=== PATIENT | female | born 1995 | race African-American/Black ===

== ENCOUNTER → 2017-06-08 | Outpatient (CLI) | payer OTHER ==
[~2017-06-08] MED LIST: DICL75 PO; DOXY10TA PO; NITR100C4 PO; TRAM50 PO; ZOFR4TAB3 SL
== END ==
LOC: HPND 13:12
PROVIDERS: ATTEND Family Medicine
DX: O26.842 Uterine size-date discrepancy, second trimester (principal); Z36.0 Encounter for antenatal screening for chromosomal anomalies
CPT/HCPCS: 76805

== ENCOUNTER → 2017-07-06 | Outpatient (CLI) | payer OTHER ==
[~2017-07-06] MED LIST changes: -DICL75 PO; -TRAM50 PO
== END ==
LOC: HPND 13:09
PROVIDERS: ATTEND Family Medicine
DX: Z36.2 Encounter for other antenatal screening follow-up (principal)
CPT/HCPCS: 76816

== ENCOUNTER 2017-11-09 06:08 | Inpatient (IN) | payer OTHER ==
[~2017-11-09] VITALS: Ht 160 cm; Wt 103.4 kg
--- NOTE | 2017-11-09 08:10 | PD ---
HPI Chief Complaint Contractions Date Seen: November 09, 2017 Travel History International Travel<30 Days: No Contact w/Intl Traveler<30Days: No Known Affected Area: No History of Present Illness HPI Ms. Copeland is a 22-year-old presenting at 39/0 weeks gestation with a chief complaint of contractions. Patient states that she has been experiencing painful contractions since late yesterday afternoon. Currently she states they are less than 5 minutes apart and very painful in nature. Patient also states that she "lost her mucous plug" and began to have some mild bleeding. She endorses good movement and denies any vaginal discharge, vaginal bleeding, dysuria, or loss of fluid at this time. Otherwise she has no complaints and denies any fevers, chills, shortness of breath, chest pain, NVD, abdominal pain, or calf tenderness. Weeks Gestation: 39 Para: 0 : 1 History Past Medical History Narrative Medical -None reported Obstetric History Obstetric History OBGYN: - -LMP approximately 01/20/17 -Regular cycles previously lasting approximately 4-5 days, monthly -No history of abnormal PAP smears reported -MRSA UTI in first trimester -GBS positive Past Surgical History Narrative Surgical -Appendectomy Family History Narrative Family History -Breast cancer, OA, Scoliosis, no complication history reported Social History Narrative Social History -Tobacco - None reported -Alcohol - None since she found out she was on around 01/17, occasional history otherwise -Illicit - None reported Allergies-Medications (Allergen,Severity, Reaction): Coded Allergies: acetaminophen (Verified Allergy, Severe, 11/09/17) hydrocodone (Verified Allergy, Severe, 11/09/17) Home Meds Active Scripts Doxylamine-Pyridoxine (Diclegis) 10-10 Mg Tab, 1 TAB PO BID, #60 TAB 1 Refill Prov:Td Ochoa MD R2 06/13/17 Ondansetron Odt (Zofran Odt) 4 Mg Tab, 4 MG SL Q6HR Y for Nausea/Vomiting, #30 TAB 1 Refill Prov:Td Ochoa MD R2 06/13/17 Nitrofurantoin Monohydrate Macrocrystals (Nitrofurantoin Monohydrate Macrocrystals) 100 Mg Cap, 100 MG PO Q6HR for Infection, #28 CAP 0 Refills Prov:Td Ochoa MD R2 06/07/17 Review of Systems Except as stated in HPI: all other systems reviewed are Neg Physical Exam Narrative GENERAL: Well-nourished, well-developed patient. SKIN: Warm and dry. HEAD: Normocephalic and atraumatic. EYES: No scleral icterus. No injection or drainage. ENT: No nasal drainage noted. Mucous membranes pink. Airway patent. NECK: Supple, trachea midline. No JVD. CARDIOVASCULAR: Regular rate and rhythm without murmurs, gallops, or rubs. RESPIRATORY: Breath sounds equal bilaterally. No accessory muscle use. ABDOMEN/GI: Abdomen soft, non-tender, bowel sounds present, no rebound, no guarding Gravid to 39 GENITOURINARY: Per nursing staff External Genitalia: intact and normal in appearance Cervix: Posterior Dilatation: 1 cm Effacement: 60% Station: -2 Membranes: Intact Uterine Contractions: None currently on monitoring FHT's: Category: 1 Baseline: 130s Reactive: Positive Variability: Moderate Decels: None EXTREMITIES: No cyanosis or edema. BACK: Nontender without obvious deformity. No CVA tenderness. NEUROLOGICAL: Awake and alert. Motor and sensory grossly within normal limits. Five out of 5 muscle strength in all muscle groups. Normal speech. Data Data Vital Signs Reviewed: Yes Orders Orders Vital Signs (Adult) .ON ADMISSION (11/09/17 08:05) ^ Labor Status (11/09/17 08:05) ^ Non Stress Test (11/09/17 08:05) Group B Strep: Positive MDM Medical Record Reviewed: Yes Plan Ms. Copeland is a 22 y/o F presenting to the OB ED with a chief complaint of contractions. 1. 39 weeks gestation -Continue routine OB care -Encouraged oral hydration and vitamin -Cervical exam: Posterior, 1 cm, 60%, -2 -FHT: Category 1, reassuring -Plan to re-check cervix for possible early labor 2. GBS positive -Pen G per protocol 3. MRSA UTI and first trimester -MRSA screening ordered Update: Patient has progressed to 3/4 cm dilation showing patient is likely in early stages of labor. Due to GBS positive, plan to admit patient for penicillin G prophylaxis. Anticipate vaginal delivery. 1. Early labor -Continue routine OB care -Orders placed 2. GBS positive -Pen G per protocol 3. MRSA UTI and first trimester -MRSA screening ordered SDW: Dr. Myers Diagnosis Diagnosis: Primary Impression: 39 weeks gestation of Additional Impression: Uterine contractions during Patient Instructions: General Instructions, Early Labor Signs (ED), Movement (ED), Having Your Baby: The Labor Process (GEN) Td Ochoa MD R2 November 09, 2017 08:10
[2017-11-09] MEDS ORDERED: LACTATED RINGER'S 1000 ML INJ 1,000 ML IV PRN (08:51)
--- NOTE | 2017-11-09 08:51 | HHI.HP ---
History & Physical H&P HPI Chief Complaint Contractions Date Seen: November 09, 2017 Travel History International Travel<30 Days: No Contact w/Intl Traveler<30Days: No Known Affected Area: No History of Present Illness HPI Ms. Copeland is a 22-year-old presenting at 39/0 weeks gestation with a chief complaint of contractions. Patient states that she has been experiencing painful contractions since late yesterday afternoon. Currently she states they are less than 5 minutes apart and very painful in nature. Patient also states that she "lost her mucous plug" and began to have some mild bleeding. She endorses good movement and denies any vaginal discharge, vaginal bleeding, dysuria, or loss of fluid at this time. Otherwise she has no complaints and denies any fevers, chills, shortness of breath, chest pain, NVD, abdominal pain, or calf tenderness. Weeks Gestation: 39 Para: 0 : 1 History (Limited) History Past Medical History Narrative Medical -None reported Obstetric History Obstetric History OBGYN: - -LMP approximately 01/20/17 -Regular cycles previously lasting approximately 4-5 days, monthly -No history of abnormal PAP smears reported -MRSA UTI in first trimester -GBS positive Past Surgical History Narrative Surgical -Appendectomy Family History Narrative Family History -Breast cancer, OA, Scoliosis, no complication history reported Social History Narrative Social History -Tobacco - None reported -Alcohol - None since she found out she was on around 01/17, occasional history otherwise -Illicit - None reported Allergies-Medications Allergies-Medications (Allergen,Severity, Reaction): Coded Allergies: acetaminophen (Verified Allergy, Severe, 11/09/17) hydrocodone (Verified Allergy, Severe, 11/09/17) Home Meds Active Scripts Doxylamine-Pyridoxine (Diclegis) 10-10 Mg Tab, 1 TAB PO BID, #60 TAB 1 Refill Prov:Td Ochoa MD R2 06/13/17 Ondansetron Odt (Zofran Odt) 4 Mg Tab, 4 MG SL Q6HR Y for Nausea/Vomiting, #30 TAB 1 Refill Prov:Td Ochoa MD R2 06/13/17 Nitrofurantoin Monohydrate Macrocrystals (Nitrofurantoin Monohydrate Macrocrystals) 100 Mg Cap, 100 MG PO Q6HR for Infection, #28 CAP 0 Refills Prov:Td Ochoa MD R2 06/07/17 ROS Review of Systems Except as stated in HPI: all other systems reviewed are Neg Physical Exam Physical Exam Narrative GENERAL: Well-nourished, well-developed patient. SKIN: Warm and dry. HEAD: Normocephalic and atraumatic. EYES: No scleral icterus. No injection or drainage. ENT: No nasal drainage noted. Mucous membranes pink. Airway patent. NECK: Supple, trachea midline. No JVD. CARDIOVASCULAR: Regular rate and rhythm without murmurs, gallops, or rubs. RESPIRATORY: Breath sounds equal bilaterally. No accessory muscle use. ABDOMEN/GI: Abdomen soft, non-tender, bowel sounds present, no rebound, no guarding Gravid to 39 GENITOURINARY: Per nursing staff External Genitalia: intact and normal in appearance Cervix: Posterior Dilatation: 1 cm Effacement: 60% Station: -2 Membranes: Intact Uterine Contractions: None currently on monitoring FHT's: Category: 1 Baseline: 130s Reactive: Positive Variability: Moderate Decels: None EXTREMITIES: No cyanosis or edema. BACK: Nontender without obvious deformity. No CVA tenderness. NEUROLOGICAL: Awake and alert. Motor and sensory grossly within normal limits. Five out of 5 muscle strength in all muscle groups. Normal speech. Data Data Data Vital Signs Reviewed: Yes Orders Orders Vital Signs (Adult) .ON ADMISSION (11/09/17 08:05) ^ Labor Status (11/09/17 08:05) ^ Non Stress Test (11/09/17 08:05) Group B Strep: Positive MDM MDM Medical Record Reviewed: Yes Plan Ms. Copeland is a 22 y/o F presenting to the OB ED with a chief complaint of contractions. 1. 39 weeks gestation -Continue routine OB care -Encouraged oral hydration and vitamin -Cervical exam: Posterior, 1 cm, 60%, -2 -FHT: Category 1, reassuring -Plan to re-check cervix for possible early labor 2. GBS positive -Pen G per protocol 3. MRSA UTI and first trimester -MRSA screening ordered Update: Patient has progressed to 3/4 cm dilation showing patient is likely in early stages of labor. Due to GBS positive, plan to admit patient for penicillin G prophylaxis. Anticipate vaginal delivery. 1. Early labor -Continue routine OB care -Orders placed 2. GBS positive -Pen G per protocol 3. MRSA UTI and first trimester -MRSA screening ordered SDW: Dr. Myers Diagnosis Diagnosis: Primary Impression: 39 weeks gestation of Additional Impression: Uterine contractions during Patient Instructions: General Instructions, Early Labor Signs (ED), Movement (ED), Having Your Baby: The Labor Process (GEN) Td Ochoa MD R2 November 09, 2017 08:51
[2017-11-09] MEDS ORDERED: SODIUM CHLORID 0.9% 500 ML INJ 500 ML IV PRN (09:00)
[2017-11-09] MEDS ORDERED: CITRIC ACID-SODIUM CITRATE LIQ 30 ML UDC PO SCH (09:00)
[2017-11-09] MEDS: LACTATED RINGER'S 1000 ML INJ 1,000 ML IV SCH ×2 (09:00→17:41)
[2017-11-09] MEDS ORDERED: LIDOCAINE HCL 1% 50 ML VIAL I-DERMAL PRN (09:00)
[2017-11-09] MEDS ORDERED: ONDANSETRON HCL 4 MG/2 ML VIAL IV PUSH PRN (09:00)
[2017-11-09] MEDS ORDERED: LIDOCAINE HCL 1% 50 ML VIAL INFIL PRN (09:00)
[2017-11-09] MEDS ORDERED: OXYTOCIN 30 UNITS-500ML PREMIX 500 ML IV ONE (09:00)
[2017-11-09] MEDS ORDERED: MINERAL OIL 10 ML VIAL TOPICAL PRN (09:00)
[2017-11-09] MEDS ORDERED: SODIUM CHLOR 0.9% 1000 ML INJ 1,000 ML IV PRN (09:11)
[2017-11-09 09:20] LABS: AUTOMATED NEUTROPHIL # 9.1 TH/MM3 (1.8-7.7); BASOPHIL % 0.4 % (0.0-2.0); EOSINOPHIL # 0.1 TH/MM3 (0-0.4); EOSINOPHIL % 0.4 % (0.0-4.0); HEMATOCRIT 35.2 % (35.0-46.0); HEMOGLOBIN 11.5 GM/DL (11.6-15.3); LYMPH % 21.4 % (9.0-44.0); LYMPHOCYTE # 2.8 TH/MM3 (1.0-4.8); MEAN CORPUSCULAR HEMOGLOBIN 26.8 PG (27.0-34.0); MEAN CORPUSCULAR HGB CONC 32.6 % (32.0-36.0); MEAN PLATELET VOLUME 8.2 FL (7.0-11.0); MONO % 8.9 % (0.0-8.0); MONOCYTE # 1.2 TH/MM3 (0-0.9); NEUT % 68.9 % (16.0-70.0); PLATELET COUNT 339 TH/MM3 (150-450); RED BLOOD COUNT 4.29 MIL/MM3 (4.00-5.30); WHITE BLOOD COUNT 13.2 TH/MM3 (4.0-11.0)
[2017-11-09 09:22] LABS: BACTERIA, URINE RARE /hpf; BILIRUBIN, URINE NEG (NEG); BLOOD, URINE SMALL (NEG); GLUCOSE,URINE NEG (NEG); KETONE, URINE 10 mg/dL (NEG); MUCUS URINE FEW /lpf (OCC); NITRITE,URINE NEG (NEG); PH, URINE 6.5 (5.0-8.5); SQUAMOUS EPITHELIAL CELL URINE 4 /hpf (0-5); URINE COLOR YELLOW (YELLW/STRAW); URINE LEUKOCYTE ESTERASE TRACE (NEG)
[2017-11-09] MEDS ORDERED: PENICILLIN G POTASSIUM INJ 5,000,000 UNITS in SODIUM CHLORIDE 0.9% INJ 100 ML IV ONE (10:00)
[2017-11-09] MEDS ORDERED: fentaNYL 2MCG-BUPIV 0.125% INJ 150 ML EPIDURAL ONE (10:28)
[2017-11-09] MEDS ORDERED: ePHEDrine/NS 25 MG/5 ML SYRINGE ONE (10:28)
[2017-11-09] MEDS ORDERED: LIDOCAINE 1.5%/EPINEPHrine 1:200,000 PF 5 ML AMP ONE (11:03)
[2017-11-09] MEDS ORDERED: fentaNYL 2MCG-BUPIV 0.125% 100 ML EPIDURAL PRN (12:45)
[2017-11-09] MEDS ORDERED: ePHEDrine/NS 25 MG/5 ML SYRINGE IV PUSH PRN (12:45)
[2017-11-09] MEDS ORDERED: NO SYSTEM NARCOTICS PRN (12:45)
[2017-11-09] MEDS ORDERED: DO NOT ADMINISTER ANTICOAGULANTS PRN (12:45)
[2017-11-09] MEDS: PENICILLIN G POTASSIUM INJ 2,500,000 UNITS in SODIUM CHLORIDE 0.9% INJ 100 ML IV SCH ×3 (13:56→21:30)
[2017-11-09] MEDS ORDERED: DIPHTH/TETANUS/ACEL PERTUSSIS (BOOSTER) 0.5 ML VIAL/PFS IM ONE (16:00)
[2017-11-09] MEDS ORDERED: MEASLES, MUMPS, RUBELLA VACCINE 0.5 ML VIAL SQ ONE (16:00)
--- NOTE | 2017-11-09 16:03 | PD.LABORPN ---
Subjective Subjective pt. in bed comfortable s/p epidural. Objective Objective Pelvic Exam: Cervix: mid Dilatation: 5 Effacement: 90 Station: 0 Presentation: cephalic Membranes: ruptured, arom Uterine Contractions: q 3-5 min FHT's: Category: 1 Reactive: + Variability: mod Weeks Gestation: 39 Pt started active labor?: Yes Medical induction of labor?: No Artificial rupture of membrane: Yes Artificial ROM date: November 09, 2017 Artifical ROM time: 15:30 Assessment/Plan Problem List: (1) 39 weeks gestation of ICD Codes: Z3A.39 - 39 weeks gestation of Status: Acute (2) Uterine contractions during ICD Codes: O62.2 - Other uterine inertia Status: Acute Assessment and Plan pt. s/p arom. fht reassuring. will recheck in 1 hour and if no change will augment w/ pitocin. Mynor Rangel Jr., MD November 09, 2017 16:03
[2017-11-09] MEDS ORDERED: OXYTOCIN 30 UNITS-500ML PREMIX 500 ML IV PRN (16:45)
--- NOTE | 2017-11-09 19:20 | PD.LABORPN ---
Subjective Subjective Patient seen and examined. Patient resting comfortably with very sugars in room. Currently with no complaints. Pain controlled with epidural. Patient endorses movement and consistent contractions augmented with oxytocin. Objective Objective Pelvic Exam: Per nursing staff Dilatation: 6/7 cm Effacement: 70% Station: -2 Membranes: AROM with clear fluid Uterine Contractions: Every 2-4 minutes FHT's: Category: 1 Baseline: 120s Reactive: Positive Variability: Moderate Decels: None Weeks Gestation: 39 Pt started active labor?: Yes Medical induction of labor?: No Artificial rupture of membrane: Yes Artificial ROM date: November 09, 2017 Artifical ROM time: 15:30 Assessment/Plan Problem List: (1) 39 weeks gestation of ICD Codes: Z3A.39 - 39 weeks gestation of Status: Acute (2) Uterine contractions during ICD Codes: O62.2 - Other uterine inertia Status: Acute Assessment and Plan 1. Active labor -Continue routine OB care -Epidural in place without complaints for pain control -AROM with clear fluid, IUPC in place -Oxytocin currently at 5 mU/min -FHT category 1, reassuring -Anticipate vaginal delivery 2. GBS positive -Pen G per protocol; s/p 3 doses 3. MRSA UTI and first trimester -MRSA screening negative Td Ochoa MD R2 November 09, 2017 19:20
[2017-11-09] MEDS ORDERED: LIDOCAINE HCL 1% PF 30 ML VIAL ONE (21:19)
[2017-11-09] MEDS ORDERED: ZOLPIDEM TARTRATE 5 MG TAB PO PRN (23:00)
[2017-11-09] MEDS ORDERED: ONDANSETRON ODT 4 MG TAB PO PRN (23:00)
[2017-11-09] MEDS ORDERED: WITCH HAZEL 50%/GLYCERIN 12.5% 40 PAD JAR TOPICAL PRN (23:00)
[2017-11-09] MEDS ORDERED: ALUMINUM/MAGNESIUM/SIMETH 30 ML CUP PO PRN (23:00)
[2017-11-09] MEDS ORDERED: DOCUSATE SODIUM 50 MG/SENNA 8.6 MG TAB PO PRN (23:00)
[2017-11-09] MEDS ORDERED: OXYTOCIN 30 UNITS-500ML PREMIX 500 ML IV SCH (23:00)
[2017-11-09] MEDS ORDERED: SODIUM CHLORIDE 0.9% FLUSH 10 ML FLUSH IV FLUSH PRN (23:00)
[2017-11-09] MEDS ORDERED: BENZOCAINE 20% TOPICAL SPRAY 60 ML CAN TOPICAL PRN (23:00)
--- NOTE | 2017-11-09 23:03 | PD.OB.DELI ---
Weeks gestation: 39 Pt started active labor?: Yes Medical induction of labor?: No Artificial rupture of membrane: Yes Artificial ROM date: November 09, 2017 Artifical ROM time: 15:30 Anesthesia: Epidural Episiotomy: None Vaginal Delivery: Normal Presentation: Occiput anterior Nuchal Cord: None Delayed cord clamping (45 sec): Yes : Female Delivery date: November 09, 2017 Delivery time: 22:35 One Minute : 8 Five Minute : 8 Weight: 3305g Placenta: Spontaneous delivery Laceration: No lacerations (L introitus skid anant; hemostasis obtained with pressure only) Estimated blood loss: <150cc Additional Information Ms. Copeland is a 22-year-old G1 now P1 after uncomplicated . Delivery performed under epidural anesthesia with oxytocin augmentation. Patient had appropriately been treated for GBS positive status. Baby with Apgars of 8/8 and birthweight of 3305 g. Mother delivered the placenta spontaneously and was without lacerations. Currently mother and baby are resting comfortably in room. Of note, baby was given a short course of CPAP with blow-by oxygen initially, but responded well and is currently with an oxygen saturation in the upper 90s on room air. SDW: Td Light MD R2 November 09, 2017 23:03
[2017-11-10 01:16] VITALS: BP 131/84; PULSE 108; RESP 18; TEMP 98.5
[2017-11-10] MEDS: IBUPROFEN 800 MG TAB PO PRN ×3 (03:04→20:07)
[2017-11-10] MEDS: oxyCODONE/ACETAMINOPHEN 5 MG/325 MG TAB PO PRN ×3 (08:20→15:50)
--- NOTE | 2017-11-10 08:47 | HHI.OB ---
Subjective Post Day: 1 Remarks Pt seen and examined this morning. day # 1 AFVSS overnight. Decreased lochia. Denies dysuria. No breast tenderness. She is feeding the baby via breast. Appetite good. No nausea or vomiting. Patient endorses having a bowel movement and continues to pass bowel gas. Ambulating well. Denies calf pain or shortness of breath. Her only complaint this morning is cramping while breast-feeding. Otherwise, she is doing well this morning and has no other concerns. (Td Ochoa MD R2) Objective Vitals/I&O Vital Signs Date Time Temp Pulse Resp B/P (MAP) Pulse Ox O2 Delivery O2 Flow Rate FiO2 11/10/17 01:16 98.5 108 18 131/84 (100) Objective Remarks GENERAL: Well-nourished, well-developed patient. CARDIOVASCULAR: Regular rate and rhythm without murmurs, gallops, or rubs. RESPIRATORY: Breath sounds equal bilaterally. No accessory muscle use. ABDOMEN/GI: Abdomen soft, non-tender. Fundus: Firm, non-tender at umbilicus. GENITOURINARY: Light to moderate bleeding. EXTREMITIES: No cyanosis or edema, non-tender, without signs of DVT. Medications and IVs Current Medications Medications (Trade) Dose Ordered Sig/Carisa Route Start Time Stop Time Status Last Admin ([facility] [place] [facility]) No systemic narcotics to be given except... UNSCH PRN .XX 11/09/17 12:45 11/10/17 12:44 ([facility] [place] [facility]) DO NOT ADMINISTER ANY ANTICOAGUL... UNSCH PRN .XX 11/09/17 12:45 11/10/17 12:44 Fentanyl/ Bupivacaine HCl 100 ml @ 0 mls/hr TITRATE PRN EPIDURAL 11/09/17 12:45 (ePHEDrine/NS 25 MG/5 ML SYR) 10 mg UNSCH PRN IV PUSH 11/09/17 12:45 11/10/17 12:44 Oxytocin 500 ml @ 2 mls/hr TITRATE PRN IV 11/09/17 16:45 11/09/17 18:10 (NS Flush) 2 ml BID IV FLUSH 11/10/17 09:00 (NS Flush) 2 ml UNSCH PRN IV FLUSH 11/09/17 23:00 (Motrin) 800 mg Q8H PRN PO 11/09/17 23:00 11/10/17 03:04 (Americaine 20% Top Spr) 1 spray Q4H PRN TOPICAL 11/09/17 23:00 11/10/17 03:04 (Tucks Pads) 1 applic QID PRN TOPICAL 11/09/17 23:00 11/10/17 03:04 (Tabatha-Colace) 2 tab Q12H PRN PO 11/09/17 23:00 11/10/17 08:20 (Ambien) 5 mg HS PRN PO 11/09/17 23:00 (Mag-Al Plus Susp Liq) 15 ml Q8H PRN PO 11/09/17 23:00 (Zofran Odt) 4 mg Q6H PRN PO 11/09/17 23:00 (Percocet 5-325 Mg) 1 tab Q4H PRN PO 11/10/17 07:45 (Percocet 5-325 Mg) 2 tab Q4H PRN PO 11/10/17 07:45 11/10/17 08:20 (Td Ochoa MD R2) Assessment/Plan Problem List: (1) 39 weeks gestation of ICD Codes: Z3A.39 - 39 weeks gestation of Status: Resolved (2) Uterine contractions during ICD Codes: O62.2 - Other uterine inertia Status: Resolved (3) (spontaneous vaginal delivery) ICD Codes: O80 - Encounter for full-term uncomplicated delivery Assessment and Plan 37 y/o female who is day # 1 s/p . -Continue routine care. -Percocet and Motrin PRN pain. -Encouraged OOB. Advised pelvic rest for 6 wks. patient will follow-up in 6 weeks with PCP. -Re: ctrl, she would like to discuss her options at a later date. -Anticipate discharge tomorrow with baby. dw Dr. Eran MD Discharge Planning Tomorrow pending clinical course (Td Ochoa MD R2) Attending Attestation Patient seen and examined, discussed with Dr Ochoa. I agree with assessment and management as documented and discussed with me. Discussed control options with patient. After weighing risks and benefits , she has opted for micronor OCPs. (Asia Barillas MD) Td Ochoa MD R2 Nov 10, 2017 08:47 Asia Barillas MD Nov 10, 2017 17:36
[2017-11-10] MEDS ORDERED: IBUP1TAB7 PO (08:48)
[2017-11-10] MEDS ORDERED: PERI PO (08:48)
--- NOTE | 2017-11-10 08:49 | HHI.DCPOC ---
Discharge Care Plan Diagnosis: (1) (spontaneous vaginal delivery) Report Symptoms to Your Doctor -Temperature above 100.5 degrees -Redness, of incision or excessive or foul smelling drainage -Unusual pain or calf pain -Increased vaginal bleeding -Painful or difficulty urinating -Feelings of extreme sadness or anxiety after 2 weeks Goals to Promote Your Health * To prevent worsening of your condition and complications * To maintain your health at the optimal level Directions to Meet Your Goals Take your medications as prescribed Follow your dietary instruction Follow activity as directed Ensure plenty of rest for recovery Drink fluids for hydration Keep your appointments as scheduled Take your immunizations and boosters as scheduled If your symptoms worsen call your PCP, if no PCP go to Urgent Care Center or Emergency Room Smoking is Dangerous to Your Health. Avoid second hand smoke Call the 24-hour crisis hotline for domestic abuse at Td Ochoa MD R2 Nov 10, 2017 08:48
[2017-11-10] MEDS ORDERED: SODIUM CHLORIDE 0.9% FLUSH 10 ML FLUSH IV FLUSH SCH (09:00)
[2017-11-10] MEDS ORDERED: NORE0.354 PO (13:09)
[2017-11-10 21:08] VITALS: BP 122/69; PULSE 88; RESP 18; TEMP 97.9
[2017-11-11] MEDS: oxyCODONE/ACETAMINOPHEN 5 MG/325 MG TAB PO PRN ×2 (03:02→12:33)
[2017-11-11] MEDS: IBUPROFEN 800 MG TAB PO PRN ×2 (03:03→12:34)
--- NOTE | 2017-11-11 07:45 | HHI.OB ---
Subjective Post Day: 2 Remarks Patient seen and examined this morning. AFVSS overnight. day #2. Patient states her pain has been well-controlled. Decreased lochia. Denies dysuria. No breast tenderness. Appetite good. No nausea or vomiting. Ambulating well. Denies fevers or chills, calf pain, shortness of breath, or cough. She otherwise has no other complaints or concerns this morning. (Duy Watson MD R2) Remarks Patient seen and evaluated with resident under direct supervision, agree with assessment and plan. (Rishi Roberts MD) Objective Vitals/I&O Vital Signs Date Time Temp Pulse Resp B/P (MAP) Pulse Ox O2 Delivery O2 Flow Rate FiO2 11/10/17 21:08 97.9 88 18 122/69 (86) Objective Remarks GENERAL: Well-nourished, well-developed patient. CARDIOVASCULAR: Regular rate and rhythm without murmurs, gallops, or rubs. RESPIRATORY: Breath sounds equal bilaterally. No accessory muscle use. ABDOMEN/GI: Abdomen soft, non-tender. Fundus: Firm, non-tender at umbilicus. GENITOURINARY: Light to moderate bleeding. EXTREMITIES: No cyanosis or edema, non-tender, without signs of DVT. Medications and IVs Current Medications Medications (Trade) Dose Ordered Sig/Carisa Route Start Time Stop Time Status Last Admin Fentanyl/ Bupivacaine HCl 100 ml @ 0 mls/hr TITRATE PRN EPIDURAL 11/09/17 12:45 Oxytocin 500 ml @ 2 mls/hr TITRATE PRN IV 11/09/17 16:45 11/09/17 18:10 (NS Flush) 2 ml BID IV FLUSH 11/10/17 09:00 (NS Flush) 2 ml UNSCH PRN IV FLUSH 11/09/17 23:00 (Motrin) 800 mg Q8H PRN PO 11/09/17 23:00 11/11/17 03:03 (Americaine 20% Top Spr) 1 spray Q4H PRN TOPICAL 11/09/17 23:00 11/10/17 03:04 (Tucks Pads) 1 applic QID PRN TOPICAL 11/09/17 23:00 11/10/17 03:04 (Tabatha-Colace) 2 tab Q12H PRN PO 11/09/17 23:00 11/10/17 08:20 (Ambien) 5 mg HS PRN PO 11/09/17 23:00 (Mag-Al Plus Susp Liq) 15 ml Q8H PRN PO 11/09/17 23:00 (Zofran Odt) 4 mg Q6H PRN PO 11/09/17 23:00 (Percocet 5-325 Mg) 1 tab Q4H PRN PO 11/10/17 07:45 11/11/17 03:02 (Percocet 5-325 Mg) 2 tab Q4H PRN PO 11/10/17 07:45 11/10/17 15:50 (Duy Watson MD R2) Assessment/Plan Problem List: (1) 39 weeks gestation of ICD Codes: Z3A.39 - 39 weeks gestation of Status: Resolved (2) (spontaneous vaginal delivery) ICD Codes: O80 - Encounter for full-term uncomplicated delivery Assessment and Plan 37 y/o female who is day #2 s/p . -Continue routine care. -Percocet and Motrin PRN pain. -Encouraged OOB. Advised pelvic rest for 6 wks. patient will follow-up in 6 weeks with PCP. -Re: ctrl, she would like to discuss her options at a later date. -Anticipate discharge today [facility] OB hospitalist Discharge Planning Stable for discharge home today (Duy Watson MD R2) Duy Watson MD R2 Nov 11, 2017 07:45 Rishi Roberts MD Nov 12, 2017 16:40
== END 2017-11-11 18:34 | disposition home or self-care (01) | DRG 775 ==
LOC: HOBED 06:08 → H2EA 08:46 → H1EA 11-10 00:49
PROVIDERS: ADMIT Obstetrics & Gynecology Obstetrics; ATTEND Obstetrics & Gynecology Obstetrics
PROC: 10E0XZZ Delivery of Products of Conception, External Approach (ICD-10-PCS; principal; 2017-11-09)
PROC: 10907ZC Drainage of Amniotic Fluid, Therapeutic from Products of Conception, Via Natural or Artificial Opening (ICD-10-PCS; 2017-11-09)
PROC: 10H07YZ Insertion of Other Device into Products of Conception, Via Natural or Artificial Opening (ICD-10-PCS; 2017-11-09)
DX: O99.824 Streptococcus B carrier state complicating childbirth (principal); Z37.0 Single live birth; Z3A.39 39 weeks gestation of pregnancy; O62.2 Other uterine inertia
CPT/HCPCS: 59025; 80307; 81001; 85025; 86900; 86901; 87641; G0481; J2540; J2590; J3010; J7120